=== PATIENT | male | born 1965 | race African-American/Black ===

== ENCOUNTER 2021-09-16 09:45 | Emergency (ER) | payer SELFPAY ==
[2021-09-16 09:56] VITALS: BP 174/104; PULSE 75; RESP 18; TEMP 36.2; O2SAT 98; BMI 43.3
--- NOTE | 2021-09-16 10:13 | XR_ITS ---
WS: [id number] Exam: XR foot RT min 3V* [id number] Date/Time of Exam: 09/16/2021 10:17 AM Reason For Exam: pain No acute fracture or dislocation. Moderate degenerative change at the first MP joint. No soft tissue foreign bodies. Plantar heel spur. XR/XR foot RT min 3V* [id number] IMPRESSION: 1. No fracture or dislocation. 2. 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
[2021-09-16 10:57] VITALS: BP 164/105; PULSE 63; RESP 18; O2SAT 97
--- NOTE | 2021-09-16 11:17 | W.ED.EXTPRO ---
HPI - Extremity Problem General: Chief complaint: Extremity Injury, Lower Stated complaint: Right ankle/foot swelling Time Seen by Provider: 09/16/21 10:13 History of Present Illness: Patient relates that he has pain in his right foot that started down by the base of his big toe went to the heel and radiate up his abbott area. He relates this all started after he was keeping the pedal to the metal extensively as compared to his normal driving habits. Patient said he normally uses cruise control but throughout the last 5 days , 3 of those days his foot down push on the pedal to keep in 70 miles an hour and then the pain started to base of toe. He said it feels like it swelled. But it hurts for him to ambulate and extend his foot. Denies any redness fever chills or other related problems. Associated symptoms: Deny chest pain, fever(s) or rash Review of Systems Narrative: Start and foot after his normal driving habits for change to accomplish the goal of getting home quicker. He is having pain with range of motion of his foot. Const: Denies: fever(s), chills or body aches Eyes: Denies: eye discomfort ENMT: Denies: throat pain Card: Denies: chest pain Resp: Denies: dyspnea GI: Denies: abdominal pain, nausea or vomiting Musc: Reports: extremity pain, joint stiffness and limited range of motion; Denies: joint redness or joint warmth Skin/Breast: Denies: rash Neuro: Denies: headache(s) Psych: Denies: depression or suicidal ideation Physical Exam Const: COMMON NORMALS: no acute distress, patient oriented x3 and alert HENMT: COMMON NORMALS: normocephalic HEAD & SCALP: normocephalic Eye: COMMON NORMALS: EOMs intact bilaterally Neck/C-Spine: COMMON NORMALS: no JVD Resp: COMMON NORMALS: normal respiratory effort and No use of accessory muscles Cardio: COMMON NORMALS: no JVD GI: INSPECTION: Yes normal to inspection Extremity: COMMON NORMALS: full ROM RIGHT LOWER EXTREMITY: Yes foot & digits (Pain base of the heel and anterior tendon.) Right foot and digits: Yes ROM (Pain with range of motion to the forefoot up through the abbott), Yes neurovascular exam (Intact no evidence of clot or DVT, pulses normal) and Yes tendon exam (Tender with good range of motion) Neuro: COMMON NORMALS: patient oriented x3 SENSORIUM/ORIENTATION: Yes alert Psych: COMMON NORMALS: mental status grossly normal Skin: COMMON NORMALS: no rashes or lesions noted GENERAL SKIN EXAM: no rashes or lesions noted Course Vital Signs: Vital signs: Vital Signs Temperature 97.2 F L 09/16/21 09:56 Pulse Rate 75 09/16/21 09:56 Respiratory Rate 18 09/16/21 09:56 Blood Pressure 174/104 09/16/21 09:56 Pulse Oximetry 98 09/16/21 09:56 MDM - Extremity (Nontraumatic) Medical Decision Making And diagnosed with tendinitis. Patient has physical exam consistent with inflammation and tendon from overuse and downward flexion of the foot. Lab Data Radiology Impressions Foot X-Ray 09/16/21 10:13 IMPRESSION: 1. No fracture or dislocation. 2. 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 Discharge Plan Discharge Patient Disposition: Home Clinical Impression: Tendonitis of ankle or foot Condition: Stable Prescriptions: New prednisone 20 mg tablet 20 mg PO DAILY Qty: 7 0RF Celebrex 100 mg capsule 200 mg PO BID Qty: 20 0RF Discharge Orders: Discharge ED (Routine); Ordered 09/16/21 Ordered By: Jason Ying Discharge Diet: Usual diet Discharge Activity: Increase activity as tolerated Patient Instructions: Tendinitis (ED) Activity Restrictions/Additional Instructions: Follow-up with medical provider as directed. Take medications as prescribed. Return to the ER or your medical provider if condition worsens. Please read and understand discharge instructions. If any questions ask please. Continue to use your Aleve cream as directed as per the label. Stand Alone Forms: Work/School Release Coding Level of Care Code ED Automated Weaver for Marla Gallo
== END 2021-09-16 11:18 | disposition home or self-care (01) ==
PROVIDERS: Emergency Provider Nurse Practitioner Family
DX: M70.871 Other soft tissue disorders related to use, overuse and pressure, right ankle and foot (principal); Y93.89 Activity, other specified
CPT/HCPCS: 73630; 99281